=== PATIENT | male | born 1960 | race Caucasian/White ===

== ENCOUNTER → 2023-03-23 | Day surgery (SDC) | payer MEDICARE, MEDICAID ==
[~2023-03-23] MED LIST: LIDOCAINE HCL 1% 10 MG/ML 10ML VIAL ONE
== END | disposition home or self-care (01) ==
LOC: RADANGIO 13:15
PROVIDERS: ATTEND Podiatrist Foot & Ankle Surgery
DX: Z45.2 Encounter for adjustment and management of vascular access device (principal); M86.8X8 Other osteomyelitis, other site
CPT/HCPCS: 36573; J3490; Z7610; C1725; C1751